=== PATIENT | male | born 1970 | race Caucasian/White ===

== ENCOUNTER 2023-10-19 17:12 | Emergency (ER) | payer OTHER, BC ==
[2023-10-19] MEDS ORDERED: Lidocaine 1% 5 ML VIAL INJECT ONE (19:46)
[2023-10-19] MEDS ORDERED: Bupivacaine 0.5% 10 ML SDV INJECT ONE (19:46)
== END 2023-10-19 20:35 | disposition home or self-care (01) ==
LOC: MW.ED 17:12
DX: H92.01 Otalgia, right ear (principal); K08.89 Other specified disorders of teeth and supporting structures; Z88.0 Allergy status to penicillin
CPT/HCPCS: 64400; 99283; S0020; 41899; J3490